=== PATIENT | male | born 1980 | race Caucasian/White ===

== ENCOUNTER 2016-08-10 01:10 | Emergency (ER) | payer OTHER | END 2016-08-10 02:48 | disposition home or self-care (01) | LOC: SED 01:10 | DX: S71.111A Laceration without foreign body, right thigh, initial encounter (principal); F17.200 Nicotine dependence, unspecified, uncomplicated; W31.9XXA Contact with unspecified machinery, initial encounter; Y92.69 Other specified industrial and construction area as the place of occurrence of the external cause; Y99.0 Civilian activity done for income or pay | CPT/HCPCS: 12002; 99283 ==

== ENCOUNTER 2016-08-17 08:13 | Emergency (ER) | payer OTHER ==
[2016-08-17] MEDS ORDERED: NO MEDICATIONS (08:20)
== END 2016-08-17 09:05 | disposition home or self-care (01) ==
LOC: SED 08:13
DX: S71.111D Laceration without foreign body, right thigh, subsequent encounter (principal)
CPT/HCPCS: 99281